=== PATIENT | female | born 1990 | race Caucasian/White ===

== ENCOUNTER 2022-09-02 03:44 | Inpatient (IN) | payer OTHER ==
[2022-09-02] MEDS ORDERED: Lidocaine 1% (PF) 30 ML VIAL SC PRN (04:35)
[2022-09-02] MEDS ORDERED: Ibuprofen 800 MG TAB PO PRN (04:35)
[2022-09-02] MEDS ORDERED: Misoprostol 200 MCG TAB PR PRN (04:36)
[2022-09-02] MEDS ORDERED: Acetaminophen 500 MG TAB PO PRN (04:36)
[2022-09-02] MEDS ORDERED: Tranexamic Acid 1,000 MG in Sodium Chloride 0.9% 250 ML 250 ML IVPB PRN (04:36)
[2022-09-02] MEDS ORDERED: Promethazine HCl 25 MG/ML VIAL IM PRN ×2 (04:36→06:30)
[2022-09-02] MEDS ORDERED: Methylergonovine 0.2 MG/ML VIAL IM PRN (04:36)
[2022-09-02] MEDS ORDERED: Diphenoxylate HCl/Atropine Tablet PO PRN (04:36)
[2022-09-02] MEDS ORDERED: Carboprost 250 MCG/ML AMP IM PRN (04:36)
[2022-09-02] MEDS ORDERED: hydrALAZINE 20 MG/ML VIAL SLOW IVP PRN (04:36)
[2022-09-02] MEDS ORDERED: Butorphanol Tartrate 1 MG/ML VIAL SLOW IVP PRN (04:36)
[2022-09-02] MEDS ORDERED: Ondansetron PF 4 MG/2 ML Vial IVP PRN ×2 (04:36→06:30)
[2022-09-02 04:37] VITALS: BMI 32.5
[2022-09-02] MEDS ORDERED: Fentanyl 2 mcg/Bup 0.1% Cadd 100 ML ONE ×2 (04:40→13:08)
[2022-09-02] MEDS ORDERED: Lactated Ringer's 1,000 ML IV SCH (04:45)
[2022-09-02] MEDS ORDERED: NS w/ Oxytocin 30 units 500 ML IV SCH ×2 (04:45)
[2022-09-02 05:01] LABS: Mean Corpuscular HGB CONC 34.8 g/dL (32.0-36.0); Mean Corpuscular Hemoglobin 31.3 pg (27.0-33.0); Mean Corpuscular Volume 90.1 fl (81.6-98.3); Mean Platelet Volume 9.3 fl (7.4-10.4); Platelet Count 339 10x3/uL (150-450); RBC Distribution Width 13.8 % (11.5-14.5); Red Blood Cell (RBC) Count 4.15 10x6/uL (3.90-5.03); White Blood Cell (WBC) Count 15.6 10x3/uL (3.5-10.5)
[2022-09-02 05:23] LABS: Syphilis Antibody Nonreactive (Nonreactive); Syphilis Antibody Index 0.03 S/CO (<1.00 Non-Reactive)
[2022-09-02 05:25] LABS: HBSAg Index 0.15 S/CO (0-0.99)
[2022-09-02 05:26] LABS: Hep B Surf Ag NonReactive S/CO (NonReactive)
[2022-09-02] MEDS ORDERED: Fentanyl 100 MCG/2 ML VIAL ONE ×2 (05:41→12:04)
[2022-09-02] MEDS ORDERED: Naloxone HCl 0.4 mg/ml Vial IVP PRN ×2 (06:30)
[2022-09-02] MEDS ORDERED: diphenhydrAMINE 50 MG/ML VIAL IVP PRN (06:30)
[2022-09-02] MEDS ORDERED: ePHEDrine Sulfate 50 MG/10 ML VIAL SLOW IVP PRN (06:30)
[2022-09-02] MEDS ORDERED: Acetaminophen 325 MG TAB PO PRN (06:30)
[2022-09-02] MEDS ORDERED: Communication Order-Pharmacy FS SCH (06:30)
[2022-09-02] MEDS ORDERED: Moisturizing Cream (Eucerin) 113 GM JAR TOP PRN (06:30)
[2022-09-02] MEDS ORDERED: Lactated Ringer's 500 ML IV PRN (06:30)
[2022-09-02] MEDS ORDERED: Fentanyl 2 mcg/Bupivacaine 0.1% Cassette 100 ML EPIDURAL SCH (06:30)
[2022-09-02 16:40] LABS: HIV 1/2 INDEX 0.07 S/CO (<1.00)
[2022-09-02] MEDS ORDERED: Bisacodyl 10 MG SUPP PR PRN (16:40)
[2022-09-02] MEDS ORDERED: Boostrix 0.5 ML (Tdap) VIAL (>/=7 yrs of age) IM ONE (16:40)
[2022-09-02] MEDS ORDERED: Milk Of Magnesia 30 ML UDCUP PO PRN (16:40)
[2022-09-02 16:56] LABS: HIV (1/2) Antibody/Antigen NonReactive (NonReactive)
[2022-09-02] MEDS: Docusate 100 MG CAP PO SCH (21:06)
[2022-09-03] MEDS ORDERED: Ibuprofen 800 MG TAB PO SCH
[2022-09-03] MEDS: Ibuprofen 800 MG TAB PO SCH ×2 (05:15→13:01)
[2022-09-03] MEDS: Docusate 100 MG CAP PO SCH (08:11)
[2022-09-03 12:20] VITALS: TEMP 97.9
[2022-09-03 17:11] VITALS: BP 103/66
== END 2022-09-03 18:38 | disposition home or self-care (01) | DRG 806 ==
LOC: CSHLD 03:44 → CSHPP 17:00
PROVIDERS: ADMIT Obstetrics & Gynecology; ATTEND Obstetrics & Gynecology
PROC: 10E0XZZ Delivery of Products of Conception, External Approach (ICD-10-PCS; principal; 2022-09-02)
PROC: 0UQGXZZ Repair Vagina, External Approach (ICD-10-PCS; 2022-09-02)
PROC: 10907ZC Drainage of Amniotic Fluid, Therapeutic from Products of Conception, Via Natural or Artificial Opening (ICD-10-PCS; 2022-09-02)
PROC: 10H07YZ Insertion of Other Device into Products of Conception, Via Natural or Artificial Opening (ICD-10-PCS; 2022-09-02)
PROC: 0UQMXZZ Repair Vulva, External Approach (ICD-10-PCS; 2022-09-02)
DX: O48.0 Post-term pregnancy (principal); O63.9 Long labor, unspecified; Z37.0 Single live birth; O71.4 Obstetric high vaginal laceration alone; O71.82 Other specified trauma to perineum and vulva; O75.81 Maternal exhaustion complicating labor and delivery; O76 Abnormality in fetal heart rate and rhythm complicating labor and delivery; O77.0 Labor and delivery complicated by meconium in amniotic fluid; O24.420 Gestational diabetes mellitus in childbirth, diet controlled; O40.3XX0 Polyhydramnios, third trimester, not applicable or unspecified; O69.81X0 Labor and delivery complicated by cord around neck, without compression, not applicable or unspecified; Z3A.41 41 weeks gestation of pregnancy; Z88.1 Allergy status to other antibiotic agents; Z20.822 Contact with and (suspected) exposure to COVID-19
CPT/HCPCS: 51702; 85027; 86780; 86850; 86900; 86901; 87340; 87389; J2405; J2590; J7120

== ENCOUNTER 2022-09-14 13:07 | Inpatient (IN) | payer OTHER ==
[2022-09-14 14:33] LABS: #Basophils 0.1 10x3/uL (0.0-0.2); #Eosinphils 0.2 10x3/uL (0.0-0.5); #Monocytes 0.6 10x3/uL (0.0-1.1); #Neutrophils 6.2 10x3/uL (1.5-8.4); %Basophils 0.8 % (0.0-2.0); %Eosinophils 1.8 % (0.0-6.0); %Lymphocytes 23.6 % (18.0-47.0); %Monocytes 6.7 % (0.0-10.0); %Neutrophils 66.5 % (40.0-75.0); Hemoglobin 14.5 g/dL (12.0-15.5); Mean Corpuscular Hemoglobin 31.1 pg (27.0-33.0); Mean Corpuscular Volume 94.4 fl (81.6-98.3); Mean Platelet Volume 8.5 fl (7.4-10.4); Platelet Count 497 10x3/uL (150-450); RBC Distribution Width 13.2 % (11.5-14.5); Red Blood Cell (RBC) Count 4.66 10x6/uL (3.90-5.03); White Blood Cell (WBC) Count 9.3 10x3/uL (3.5-10.5)
[2022-09-14] MEDS ORDERED: Acetaminophen 500 MG TAB ONE (14:42)
[2022-09-14] MEDS ORDERED: Ketorolac Tromethamine 30 MG/ML VIAL ONE (14:42)
[2022-09-14] MEDS ORDERED: Prochlorperazine 10 MG/2 ML VIAL ONE (14:42)
[2022-09-14] MEDS ORDERED: diphenhydrAMINE 50 MG/ML VIAL ONE (14:42)
[2022-09-14 14:56] LABS: ALT (SGPT) 157 U/L (8-55); AST (SGOT) 109 U/L (5-34); Albumin 4.1 g/dL (3.5-5.0); Alkaline Phosphatase 109 U/L (40-110); Anion Gap 15 mmol/L (10-20); BUN (Urea Nitrogen) 13 mg/dL (7.0-18.7); Bilirubin, Total 0.4 mg/dL (0.2-1.2); Calc. Creatinine Clearance 0 mL/min (70-130); Calcium 9.5 mg/dL (7.8-10.44); Carbon Dioxide 21 mmol/L (22-29); Chloride 109 mmol/L (98-107); Estimated GFR 118; Globulin 2.9 g/dL (2.4-3.5); Glucose 80 mg/dL (70-105); Magnesium 2.1 mg/dL (1.6-2.6); Sodium 141 mmol/L (136-145)
[2022-09-14 16:23] LABS: Bilirubin Neg (Negative); Blood, Urine 250 (Negative); Clarity Clear (Clear); Glucose, Urine (Dipstick) Normal (Negative); Ketone, Urine Negative (Negative); Leukocyte 500 (Negative); Nitrite Negative (Negative); Protein, Urine (Dipstick) Negative (Neg-Trace); Urobilinogen Normal mg/dL (Less than 2); pH, Urine 6.5 (5.0-9.0)
[2022-09-14 16:40] LABS: Bacteria/HPF Rare-Few HPF (None Seen); RBC/HPF 0-3 HPF (0-3); Squamous Epithelial 0-3 HPF (0-3)
[2022-09-14] MEDS ORDERED: Ondansetron PF 4 MG/2 ML Vial IVP PRN (19:25)
[2022-09-14] MEDS ORDERED: Lactated Ringer's 500 ML IV SCH (20:00)
[2022-09-15 00:03] VITALS: BMI 29.0
[2022-09-15] MEDS: Acetaminophen 325 MG TAB PO PRN (04:17)
[2022-09-15 04:53] LABS: ALT (SGPT) 112 U/L (8-55); AST (SGOT) 67 U/L (5-34); Albumin 3.6 g/dL (3.5-5.0); Alkaline Phosphatase 104 U/L (40-110); Anion Gap 16 mmol/L (10-20); BUN (Urea Nitrogen) 11 mg/dL (7.0-18.7); Bilirubin, Total 0.3 mg/dL (0.2-1.2); Calc. Creatinine Clearance 176 mL/min (70-130); Calcium 8.9 mg/dL (7.8-10.44); Carbon Dioxide 20 mmol/L (22-29); Chloride 110 mmol/L (98-107); Estimated GFR 122; Globulin 2.5 g/dL (2.4-3.5); Glucose 89 mg/dL (70-105); Potassium 3.8 mmol/L (3.5-5.1); Protein, Total 6.1 g/dL (6.0-8.3); Sodium 142 mmol/L (136-145)
[2022-09-15 05:09] LABS: Thyroid Stimulating Hormone 0.6842 uIU/mL (0.35-4.94)
[2022-09-15] MEDS ORDERED: Vancomycin 1.5 GRAM/300 ML BAG 1.5 GM in Premix Bag 1 BAG IVPB SCH (21:00)
[2022-09-15] MEDS ORDERED: cefTRIAXone\\ROCEPHIN 2 GM in Sodium Chloride 0.9% 100 ML IVPB SCH (21:00)
[2022-09-15] MEDS ORDERED: Acyclovir Sodium 750 MG in Sodium Chloride 0.9% 100 ML IVPB SCH (22:00)
[2022-09-16] MEDS: Acetaminophen 325 MG TAB PO PRN ×2 (02:12→12:31)
[2022-09-16 04:09] LABS: #Basophils 0.1 10x3/uL (0.0-0.2); #Eosinphils 0.2 10x3/uL (0.0-0.5); #Monocytes 0.7 10x3/uL (0.0-1.1); #Neutrophils 6.8 10x3/uL (1.5-8.4); %Basophils 0.7 % (0.0-2.0); %Eosinophils 1.8 % (0.0-6.0); %Lymphocytes 23.4 % (18.0-47.0); %Monocytes 6.9 % (0.0-10.0); %Neutrophils 66.7 % (40.0-75.0); Hemoglobin 13.4 g/dL (12.0-15.5); Mean Corpuscular HGB CONC 32.6 g/dL (32.0-36.0); Mean Corpuscular Hemoglobin 30.9 pg (27.0-33.0); Mean Corpuscular Volume 94.7 fl (81.6-98.3); Mean Platelet Volume 8.7 fl (7.4-10.4); Platelet Count 425 10x3/uL (150-450); RBC Distribution Width 13.2 % (11.5-14.5); Red Blood Cell (RBC) Count 4.34 10x6/uL (3.90-5.03); White Blood Cell (WBC) Count 10.2 10x3/uL (3.5-10.5)
[2022-09-16 04:13] LABS: Anion Gap 16 mmol/L (10-20); BUN (Urea Nitrogen) 10 mg/dL (7.0-18.7); Calc. Creatinine Clearance 176 mL/min (70-130); Carbon Dioxide 20 mmol/L (22-29); Chloride 109 mmol/L (98-107); Estimated GFR 122; Glucose 98 mg/dL (70-105); Potassium 3.8 mmol/L (3.5-5.1); Sodium 141 mmol/L (136-145)
[2022-09-16] MEDS ORDERED: VANCOMYCIN 1.25 GM/250 ML BAG 1.25 GM in Premix Bag 1 BAG IVPB SCH (05:00)
[2022-09-16] MEDS: VANCOMYCIN 1.25 GM/250 ML BAG 1.25 GM in Premix Bag 1 BAG IVPB SCH ×2 (08:06→17:57)
[2022-09-16] MEDS: Acyclovir Sodium 750 MG in Sodium Chloride 0.9% 100 ML IVPB SCH ×2 (09:51→20:09)
[2022-09-16] MEDS: cefTRIAXone\\ROCEPHIN 2 GM in Sodium Chloride 0.9% 100 ML IVPB SCH ×2 (11:27→23:07)
[2022-09-16 13:27] LABS: INR-International Normal Ratio 0.9; Prothrombin Time 10.3 sec (9.5-12.1)
[2022-09-16] MEDS ORDERED: Lidocaine 1% PF 5 ML VIAL ONE (13:46)
[2022-09-16] MEDS ORDERED: Sodium Bicarbonate 2.5 MEQ/5 ML VIAL ONE (13:47)
[2022-09-16 17:34] LABS: CSF Source CSF; Clarity Clear (Clear); Tube # 4
[2022-09-16 17:35] LABS: CSF RBC Count - Manual 17 /cu.mm (None Seen); CSF WBC/NonHematics Count-Man 4 /cu.mm (0-5)
[2022-09-16] MEDS ORDERED: Ibuprofen 800 MG TAB PO SCH (19:00)
[2022-09-17] MEDS ORDERED: Ibuprofen 600 MG TAB PO PRN (01:00)
[2022-09-17] MEDS: VANCOMYCIN 1.25 GM/250 ML BAG 1.25 GM in Premix Bag 1 BAG IVPB SCH (01:25)
[2022-09-17] MEDS ORDERED: Vancomycin HCl 1 GM in Sodium Chloride 0.9% 250 ML 250 ML IVPB SCH (02:00)
[2022-09-17] MEDS: Acyclovir Sodium 750 MG in Sodium Chloride 0.9% 100 ML IVPB SCH (03:33)
[2022-09-17 04:23] LABS: #Basophils 0.1 10x3/uL (0.0-0.2); #Eosinphils 0.2 10x3/uL (0.0-0.5); #Monocytes 0.6 10x3/uL (0.0-1.1); #Neutrophils 4.5 10x3/uL (1.5-8.4); %Basophils 0.9 % (0.0-2.0); %Eosinophils 2.4 % (0.0-6.0); %Lymphocytes 31.5 % (18.0-47.0); %Monocytes 7.6 % (0.0-10.0); Hemoglobin 12.8 g/dL (12.0-15.5); Mean Corpuscular HGB CONC 32.1 g/dL (32.0-36.0); Mean Corpuscular Hemoglobin 30.6 pg (27.0-33.0); Mean Corpuscular Volume 95.5 fl (81.6-98.3); Mean Platelet Volume 8.9 fl (7.4-10.4); Platelet Count 392 10x3/uL (150-450); Red Blood Cell (RBC) Count 4.18 10x6/uL (3.90-5.03); White Blood Cell (WBC) Count 7.8 10x3/uL (3.5-10.5)
[2022-09-17 04:35] LABS: ALT (SGPT) 74 U/L (8-55); AST (SGOT) 34 U/L (5-34); Albumin 3.4 g/dL (3.5-5.0); Alkaline Phosphatase 94 U/L (40-110); Anion Gap 15 mmol/L (10-20); BUN (Urea Nitrogen) 12 mg/dL (7.0-18.7); Bilirubin, Total 0.2 mg/dL (0.2-1.2); Calc. Creatinine Clearance 165 mL/min (70-130); Calcium 8.6 mg/dL (7.8-10.44); Carbon Dioxide 19 mmol/L (22-29); Chloride 111 mmol/L (98-107); Estimated GFR 120; Globulin 2.5 g/dL (2.4-3.5); Glucose 100 mg/dL (70-105); Potassium 3.6 mmol/L (3.5-5.1); Protein, Total 5.9 g/dL (6.0-8.3); Sodium 141 mmol/L (136-145)
[2022-09-17 11:13] VITALS: BP 124/84; TEMP 98.1
[2022-09-21 11:37] LABS: IgG Serum 656 mg/dL (586-1602)
[2022-09-21 16:39] LABS: ANA Symphony (Qualitative) Negative (Negative); ANA Symphony (Quantitative) 0.3 Ratio (< 0.7 Negative); dsDNA IgG Antibody 0.8 IU/mL (<10 Negative)
== END 2022-09-17 12:25 | disposition home or self-care (01) | DRG 776 ==
LOC: CSHERS 13:07 → CSHPP 22:55 → OBSVTOIN 09-16 12:00
PROVIDERS: ADMIT Student in an Organized Health Care Education/Training Program; ATTEND Internal Medicine
PROC: 009U3ZX Drainage of Spinal Canal, Percutaneous Approach, Diagnostic (ICD-10-PCS; principal; 2022-09-16)
PROC: B01B1ZZ Fluoroscopy of Spinal Cord using Low Osmolar Contrast (ICD-10-PCS; 2022-09-16)
DX: O99.893 Other specified diseases and conditions complicating puerperium (principal); G43.909 Migraine, unspecified, not intractable, without status migrainosus; H53.2 Diplopia; Z88.1 Allergy status to other antibiotic agents; Z79.899 Other long term (current) drug therapy; Z90.49 Acquired absence of other specified parts of digestive tract; Z98.890 Other specified postprocedural states
CPT/HCPCS: 36415; 62270; 70450; 70543; 80048; 80053; 80202; 81003; 81015; 82040; 82042; 82607; 82784; 82945; 83735; 83916; 84157; 84443; 85025; 85610; 85652; 86038; 86140; 86225; 86592; 87040; 87070; 87205; 87529; 87798; 87899; 88112; 89051; 93005; 96374; 96375; 96376; G0378; J0133; J0696; J0780; J1200; J1885; J3370; J3490; J7050